=== PATIENT | male | born 1945 | race Caucasian/White ===

== ENCOUNTER 2020-03-25 14:39 | Inpatient (IN) ==
[2020-03-25 14:47] VITALS: BMI 24.4
--- NOTE | 2020-03-25 15:09 | DR.GENAD ---
HPI Time Seen Time Seen by Provider: 03/25/20 14:47 PCP Primary Care Physician: ARPAN RIVAS Complaint/Symptoms Chief Complaint Doctors Comments: Saw PCP last week and placed on zPAK Chief Complaint:: PT C/O 1 WEEK HISTORY OF NONPRODUCTIVE CONSTANT COUGH, FEVER UP TO 104, SHORTNESS OF BREATH AND NAUSEA/VOMITING. COVID-19 Coronavirus risk:travel/contact w/high risk person: Yes Has patient experienced Coronavirus symptoms: Yes Coronavirus symptoms experienced: Fever, Coughing and Shortness of Breath Nurses notes reviewed Nurses Notes Review: Yes Source History Provided: Patient Mode of Arrival Mode of Arrival: Wheelchair Timing Onset of Chief Complaint: 03/25/20 Came on: Gradually Duration Duration: Constant How lon Duration: Days Severity Severity: Mild Modifying Factors Worsens:: exertion Associated Signs and Symptoms Associated Signs and Symptoms: vomiting cough ,fever PMH PMH Past Medical History: Yes Past Medical History: Coronary Artery Disease, Hypertension, CA and Sleep Apnea Past Surgical History: Yes Surgical History: Angioplasty/Stents Family History History of Family Medical Conditions: Yes Family Medical History: Diabetes Mellitus, CA, Coronary Artery Disease and Hypertension Social History Does patient currently use any type of tobacco product: No Have you used tobacco products in the last 12 months: No Type of Tobacco Use: None Does any household member use tobacco: No Alcohol Use: None Do you use any recreational Drugs:: No Lives With: Family Lives Where: Home Travel Risk Coronavirus risk:travel/contact w/high risk person: Yes Has patient experienced Coronavirus symptoms: Yes Coronavirus symptoms experienced: Fever, Coughing and Shortness of Breath Infectious screening In the last 2 months have you had wt loss of >10#?: NO Have you had fever, night sweats or hemotysis?: No Have you traveled outside the country in the last 6 months?: No Isolation: Standard ROS Review of Systems Constitutional: Fever and Weakness Eyes: No Symptoms Reported ENTM: No Symptoms Reported Respiratoy: Productive Cough Cardiovascular: No Symptoms Reported Gastrointestinal/Abdominal: Nausea and Vomiting Genitourinary: No Symptoms Reported Neurological: No Symptoms Reported Musculoskeletal: Muscle Pain Integumentary: No Symptoms Reported Hematologic/Lymphatic: No Symptoms Reported Endocrine: No Symptoms Reported Psychiatric: No Symptoms Reported All Other Systems: Reviewed and Negative PE Vital Signs Vitals: Temperature 98.0 F Pulse Rate 68 Respiratory Rate 24 Blood Pressure 132/60 O2 Sat by Pulse Oximetry 93 General Limitations: No Limitations General Appearance: Alert and In No Apparent Distress Head Head Exam: Normal Inspection, Atraumatic and Normocephalic Eyes Eye exam: Normal Appearance and EOMI ENT ENT Exam: Normal Exam and Normal Oropharynx External Ear Exam: Normal External Inspection Nose Exam: Normal Nose Exam Mouth Exam: Normal Inspection Throat Exam: Normal Inspection Neck Neck Exam: Normal Inspection, Full ROM and Trachea Midline Chest Chest Inspection: Normal Inspection Respiratory Respiratory Exam: Normal Lung Sounds Bilat; negative Accessory Muscle Use Respiratory Exam: Right: Wheezing Cardiovascular Cardiovascular Exam: Regular Rate Abdominal Exam Abdominal Exam: Normal Inspection, Normal Bowel Sounds and Soft; negative Distention, Tenderness and Guarding Extremities Extremities Exam: Normal Inspection and Full ROM Back Back Exam: Normal Inspection and Full ROM Neurologic Neurological Exam: Alert, Oriented X3 and CN II-XII Intact Psychiatric Psychiatric Exam: Normal Affect Skin Skin Exam: Normal Color COURSE Consultation Called: 16:46 Call Returned: 16:46 Consultation Comments: 1645: case discussed with DR. THOMPSON admit for COVID19 treatment ROR Labs Reviewed Result Diagrams: 03/28/20 04:40 03/28/20 04:40 Laboratory: WBC 5.9 X10^3/uL (3.6-10.0) 03/25/20 13:24 RBC 4.69 X10^6/uL (4.7-6.0) L 03/25/20 13:24 Hgb 13.7 g/dL (13.5-18.0) 03/25/20 13:24 Hct 40.1 % (42.0-54.0) L 03/25/20 13:24 MCV 85.6 fL (80.0-100.0) 03/25/20 13:24 MCH 29.3 pg (27.0-34.0) 03/25/20 13:24 MCHC 34.3 g/dL (33.0-35.0) 03/25/20 13:24 RDW 13.6 % (11.6-16.5) 03/25/20 13:24 Plt Count 128 X10^3/uL (150.0-450.0) L 03/25/20 13:24 MPV 8.4 fL (7.4-11.0) 03/25/20 13:24 Neut % (Auto) 83.5 % (42.0-75.0) H 03/25/20 13:24 Lymph % (Auto) 4.4 % (21.0-51.0) L 03/25/20 13:24 Howell % (Auto) 11.8 % (0.0-13.0) 03/25/20 13:24 Eos % (Auto) 0.1 % (0.9-2.9) L 03/25/20 13:24 Baso % (Auto) 0.2 % (0.2-1.0) 03/25/20 13:24 Neut # (Auto) 4.9 x10^3/uL (2.2-4.8) H 03/25/20 13:24 Lymph # (Auto) 0.3 X10^3/uL (1.3-2.9) L 03/25/20 13:24 Howell # (Auto) 0.7 x10^3/uL (0.3-0.8) 03/25/20 13:24 Eos # (Auto) 0.0 x10^3/uL (0.0-0.2) 03/25/20 13:24 Baso # (Auto) 0.0 X10^3/uL (0.0-0.1) 03/25/20 13:24 Absolute Nucleated RBC 0.2 /100WBC 03/25/20 13:24 Sodium 141 mmol/L (136-145) 03/25/20 13:24 Corrected Sodium 141 mmol/L (136-145) 03/25/20 13:24 Potassium 3.7 mmol/L (3.5-5.1) 03/25/20 13:24 Chloride 105 mmol/L (98-107) 03/25/20 13:24 Carbon Dioxide 27.0 mmol/L (21-32) 03/25/20 13:24 BUN 18 mg/dL (7-18) 03/25/20 13:24 Creatinine 1.25 mg/dL (0.70-1.30) 03/25/20 13:24 Est GFR (MDRD) Af Amer > 60 (>60) 03/25/20 13:24 Est GFR (MDRD) Non-Af 60 (>60) 03/25/20 13:24 Glucose 119 mg/dL (65-99) H 03/25/20 13:24 Calcium 8.8 mg/dL (8.5-10.1) 03/25/20 13:24 Corrected Calcium 9.8 mg/dL (8.5-10.1) 03/25/20 13:24 Ferritin 626 ng/mL (26-388) H 03/25/20 13:24 Total Bilirubin 0.50 mg/dL (0.2-1.0) 03/25/20 13:24 AST 20 Units/L (15-37) 03/25/20 13:24 ALT 41 Units/L (12-78) 03/25/20 13:24 Alkaline Phosphatase 88 Units/L (46-116) 03/25/20 13:24 Troponin I < 0.02 ng/mL (0-1.5) 03/25/20 13:24 C-Reactive Protein 75.50 mg/L (0-3.0) H 03/25/20 13:24 Total Protein 6.9 g/dL (6.4-8.2) 03/25/20 13:24 Albumin 2.8 g/dL (3.4-5.0) L 03/25/20 13:24 Globulin 4.1 g/dL (2.5-4.5) 03/25/20 13:24 Albumin/Globulin Ratio 0.7 Ratio (1.1-2.1) L 03/25/20 13:24 SARS-CoV-2 (PCR) Positive (NEGATIVE) A 03/25/20 17:09 XRAY XRAY Interpreted by: Radiologist X-ray Results: chest: bronchpneumonia Opioid Opioid Risk Tool Age (Lance box if 16-45): No History of Preadolescent Sexual Abuse: No Total: 0 Total Score Risk Category: Low Risk Copyright: Jayson WESTON predicting aberrant behaviors Diagnosis Discharge Problem: Pneumonia due to COVID-19 virus Instructions Instructions: Viral Respiratory Infection, [id number] Home Oxygen Use, Adult Contact Precautions, [id number] Hypertension, [id number] Form - Blood Pressure Record Sheet Forms: Excuse From Work or School Convalescent Plasma Precautions for COVID19 Patient Portal Social Distancing
[2020-03-25] MEDS ORDERED: ZOFRAN INJ 4 MG VIAL IVP ONE (15:19)
[2020-03-25] MEDS ORDERED: SOLU-Medrol 125 MG VIAL IVP ONE (15:20)
[2020-03-25] MEDS ORDERED: XOPENEX 1.25 MG/3 ML NEBULE NEB ONE ×2 (15:21→15:24)
[2020-03-25] MEDS ORDERED: ZOFRAN INJ 4 MG VIAL ONE (15:24)
[2020-03-25] MEDS ORDERED: NS 1000 ML 1,000 ML ONE (15:24)
[2020-03-25 15:33] LABS: BASOPHILS % (AUTO) 0.2 % (0.2-1.0); EOSINOPHILS % (AUTO) 0.1 % (0.9-2.9); HEMATOCRIT 40.1 % (42.0-54.0); HEMOGLOBIN 13.7 g/dL (13.5-18.0); LYMPHOCYTES # (AUTO) 0.3 X10^3/uL (1.3-2.9); LYMPHOCYTES % (AUTO) 4.4 % (21.0-51.0); MEAN CORPUSCULAR HEMOGLOBIN 29.3 pg (27.0-34.0); MEAN CORPUSCULAR HGB CONC 34.3 g/dL (33.0-35.0); MEAN CORPUSCULAR VOLUME 85.6 fL (80.0-100.0); MEAN PLATELET VOLUME 8.4 fL (7.4-11.0); MONOCYTES # (AUTO) 0.7 x10^3/uL (0.3-0.8); MONOCYTES % (AUTO) 11.8 % (0.0-13.0); NEUTROPHILS # (AUTO) 4.9 x10^3/uL (2.2-4.8); NEUTROPHILS % (AUTO) 83.5 % (42.0-75.0); PLATELET COUNT 128 X10^3/uL (150.0-450.0); RED BLOOD COUNT 4.69 X10^6/uL (4.7-6.0); RED CELL DISTRIBUTION WIDTH 13.6 % (11.6-16.5); WHITE BLOOD COUNT 5.9 X10^3/uL (3.6-10.0)
--- NOTE | 2020-03-25 15:35 | RAD ---
HISTORYFEVER, COUGHSTUDYCHEST, 1 VIEWCOMPARISONNoneFINDINGSMultifocal areas of uptake are present. The findings could be bronchopneumonia. Findings are suspicious for COVID-19.No pleural effusion or pneumothorax.Heart size is normal. Vascular calcifications are present compatible with atherosclerosis.Degenerative changes in the acromioclavicular joints.IMPRESSION1. Bronchopneumonia, suspicious for COVID-19Electronically signed by: Dontrell Chaves (Mar 25, 2020 15:34:36)
[2020-03-25] MEDS ORDERED: MOTRIN TAB 800 MG PO ONE ×2 (15:48→15:50)
[2020-03-25 15:51] LABS: ALANINE AMINOTRANSFERASE 41 Units/L (12-78); ALBUMIN 2.8 g/dL (3.4-5.0); ALKALINE PHOSPHATASE 88 Units/L (46-116); ASPARTATE AMINO TRANSFERASE 20 Units/L (15-37); BLOOD UREA NITROGEN 18 mg/dL (7-18); CALCIUM 8.8 mg/dL (8.5-10.1); CHLORIDE 105 mmol/L (98-107); COR CA(FOR HYPOALB) 9.8 mg/dL (8.5-10.1); COR NA(FOR HYPERGLY) 141 mmol/L (136-145); CREATININE 1.25 mg/dL (0.70-1.30); SODIUM 141 mmol/L (136-145); TOTAL PROTEIN 6.9 g/dL (6.4-8.2); TROPONIN I < 0.02 ng/mL (0-1.5); eGFR NON BLACK RACES 60 (>60)
[2020-03-25] MEDS: NS 1000 ML 1,000 ML IV SCH (15:53)
[2020-03-25] MEDS ORDERED: SOLU-Medrol 125 MG VIAL ONE (15:55)
[2020-03-25] MEDS ORDERED: REMDESIVIR (INVESTIGATIONAL DRUG GS-5734) 200 MG in NS 250 ML IV 250 ML IV SCH (18:00)
[2020-03-25] MEDS ORDERED: NS 1000 ML 1,000 ML IV SCH (18:00)
[2020-03-25] MEDS: VITAMIN D (1.25MG) PO SCH (20:40)
[2020-03-25] MEDS: ZINC SULFATE PO SCH (20:40)
[2020-03-25] MEDS: LOVENOX INJ 30 MG SYR SC SCH (20:45)
[2020-03-25] MEDS: ASCORBIC ACID INJ MULTI-DOSE VIAL 1,500 MG in NS 100 ML IV 100 ML IV SCH (22:35)
[2020-03-26] MEDS: XOPENEX 1.25 MG/3 ML NEBULE NEB SCH ×4 (00:48→17:20)
[2020-03-26] MEDS: ASCORBIC ACID INJ MULTI-DOSE VIAL 1,500 MG in NS 100 ML IV 100 ML IV SCH ×4 (03:25→20:37)
[2020-03-26 07:36] LABS: CREATINE KINASE 103 Units/L (39-308); CREATINE KINASE MB < 1.0 ng/mL (0-4.0); TROPONIN I < 0.02 ng/mL (0-1.5)
[2020-03-26] MEDS ORDERED: VITAMIN A PO SCH (09:00)
[2020-03-26] MEDS: DECADRON TAB PO SCH (09:01)
[2020-03-26] MEDS: LOVENOX INJ 30 MG SYR SC SCH ×2 (09:02→20:37)
[2020-03-26] MEDS: VITAMIN D (1.25MG) PO SCH (09:03)
[2020-03-26] MEDS: PLAQUENIL PO SCH ×2 (09:03→20:37)
[2020-03-26] MEDS: ZINC SULFATE PO SCH ×2 (09:04→20:37)
[2020-03-26] MEDS: TRICOR TAB 160 MG PO SCH (09:04)
[2020-03-26] MEDS ORDERED: COREG TAB 12.5 MG PO SCH (11:00)
[2020-03-26] MEDS ORDERED: COREG TAB 25 MG ONE (11:44)
[2020-03-26] MEDS: COREG TAB 12.5 MG PO SCH ×2 (11:45→22:14)
[2020-03-26] MEDS: REMDESIVIR (INVESTIGATIONAL DRUG GS-5734) 100 MG in NS 250 ML IV 250 ML IV SCH (12:16)
[2020-03-26] MEDS: TUSSIONEX PENNKINETIC SUSP PO PRN (14:50)
[2020-03-26] MEDS: NS 1000 ML 1,000 ML IV SCH (16:13)
[2020-03-27] MEDS: XOPENEX 1.25 MG/3 ML NEBULE NEB SCH ×4 (00:50→16:35)
[2020-03-27] MEDS: ASCORBIC ACID INJ MULTI-DOSE VIAL 1,500 MG in NS 100 ML IV 100 ML IV SCH ×4 (02:09→20:23)
[2020-03-27] MEDS ORDERED: ZOFRAN INJ 4 MG VIAL IVP PRN (02:10)
[2020-03-27 05:15] LABS: BASOPHILS % (AUTO) 0.3 % (0.2-1.0); HEMATOCRIT 35.2 % (42.0-54.0); LYMPHOCYTES # (AUTO) 0.4 X10^3/uL (1.3-2.9); LYMPHOCYTES % (AUTO) 2.5 % (21.0-51.0); MEAN CORPUSCULAR HEMOGLOBIN 29.2 pg (27.0-34.0); MEAN CORPUSCULAR HGB CONC 34.2 g/dL (33.0-35.0); MEAN CORPUSCULAR VOLUME 85.5 fL (80.0-100.0); MEAN PLATELET VOLUME 9.2 fL (7.4-11.0); MONOCYTES # (AUTO) 1.5 x10^3/uL (0.3-0.8); NEUTROPHILS # (AUTO) 14.7 x10^3/uL (2.2-4.8); NEUTROPHILS % (AUTO) 88.2 % (42.0-75.0); PLATELET COUNT 160 X10^3/uL (150.0-450.0); RED BLOOD COUNT 4.11 X10^6/uL (4.7-6.0); RED CELL DISTRIBUTION WIDTH 13.8 % (11.6-16.5); WHITE BLOOD COUNT 16.6 X10^3/uL (3.6-10.0)
[2020-03-27] MEDS: NS 1000 ML 1,000 ML IV SCH ×2 (05:32→15:34)
[2020-03-27 05:41] LABS: ALANINE AMINOTRANSFERASE 31 Units/L (12-78); ALBUMIN 2.3 g/dL (3.4-5.0); ALKALINE PHOSPHATASE 108 Units/L (46-116); ASPARTATE AMINO TRANSFERASE 20 Units/L (15-37); BLOOD UREA NITROGEN 24 mg/dL (7-18); CALCIUM 8.3 mg/dL (8.5-10.1); CARBON DIOXIDE 28.7 mmol/L (21-32); CHLORIDE 109 mmol/L (98-107); COR CA(FOR HYPOALB) 9.7 mg/dL (8.5-10.1); COR NA(FOR HYPERGLY) 144 mmol/L (136-145); SODIUM 143 mmol/L (136-145); TOTAL PROTEIN 6.1 g/dL (6.4-8.2); eGFR NON BLACK RACES > 60 (>60)
[2020-03-27] MEDS: COREG TAB 12.5 MG PO SCH ×2 (09:15→21:27)
[2020-03-27] MEDS: DECADRON TAB PO SCH (09:15)
[2020-03-27] MEDS: TRICOR TAB 160 MG PO SCH (09:16)
[2020-03-27] MEDS: PLAQUENIL PO SCH ×2 (09:16→20:26)
[2020-03-27] MEDS: VITAMIN A PO SCH (09:17)
[2020-03-27] MEDS: ZINC SULFATE PO SCH ×2 (09:17→20:26)
[2020-03-27] MEDS: VITAMIN D3 125 mcg (5,000 UNITS) PO SCH (09:17)
[2020-03-27] MEDS: LOVENOX INJ 30 MG SYR SC SCH ×2 (09:20→20:24)
[2020-03-27] MEDS ORDERED: TESSALON PERLES PO PRN (10:07)
[2020-03-27] MEDS: REMDESIVIR (INVESTIGATIONAL DRUG GS-5734) 100 MG in NS 250 ML IV 250 ML IV SCH (10:18)
[2020-03-27] MEDS: MILK OF MAGNESIA PO SCH ×2 (11:55→20:23)
[2020-03-27] MEDS ORDERED: COLACE CAP 100 MG PO ONE (19:42)
[2020-03-27] MEDS ORDERED: COLACE CAP 100 MG PO SCH (21:00)
[2020-03-28] MEDS: XOPENEX 1.25 MG/3 ML NEBULE NEB SCH ×4 (02:19→11:50)
[2020-03-28] MEDS: ASCORBIC ACID INJ MULTI-DOSE VIAL 1,500 MG in NS 100 ML IV 100 ML IV SCH ×2 (02:42→09:10)
[2020-03-28] MEDS: NS 1000 ML 1,000 ML IV SCH (02:42)
[2020-03-28 05:05] LABS: BASOPHILS % (AUTO) 0.2 % (0.2-1.0); HEMATOCRIT 35.6 % (42.0-54.0); HEMOGLOBIN 12.1 g/dL (13.5-18.0); LYMPHOCYTES # (AUTO) 0.4 X10^3/uL (1.3-2.9); LYMPHOCYTES % (AUTO) 3.2 % (21.0-51.0); MEAN CORPUSCULAR HEMOGLOBIN 29.4 pg (27.0-34.0); MEAN CORPUSCULAR VOLUME 86.4 fL (80.0-100.0); MEAN PLATELET VOLUME 9.5 fL (7.4-11.0); MONOCYTES % (AUTO) 8.1 % (0.0-13.0); NEUTROPHILS # (AUTO) 10.3 x10^3/uL (2.2-4.8); NEUTROPHILS % (AUTO) 88.5 % (42.0-75.0); PLATELET COUNT 155 X10^3/uL (150.0-450.0); RED BLOOD COUNT 4.11 X10^6/uL (4.7-6.0); RED CELL DISTRIBUTION WIDTH 13.8 % (11.6-16.5); WHITE BLOOD COUNT 11.7 X10^3/uL (3.6-10.0)
[2020-03-28 05:12] LABS: ALANINE AMINOTRANSFERASE 65 Units/L (12-78); ALBUMIN 2.2 g/dL (3.4-5.0); ALKALINE PHOSPHATASE 97 Units/L (46-116); ASPARTATE AMINO TRANSFERASE 34 Units/L (15-37); BLOOD UREA NITROGEN 23 mg/dL (7-18); CALCIUM 8.5 mg/dL (8.5-10.1); CARBON DIOXIDE 26.7 mmol/L (21-32); CHLORIDE 108 mmol/L (98-107); COR CA(FOR HYPOALB) 9.9 mg/dL (8.5-10.1); COR NA(FOR HYPERGLY) 144 mmol/L (136-145); CREATININE 0.91 mg/dL (0.70-1.30); SODIUM 143 mmol/L (136-145); eGFR NON BLACK RACES > 60 (>60)
[2020-03-28] MEDS: COREG TAB 12.5 MG PO SCH (09:38)
[2020-03-28] MEDS: DECADRON TAB PO SCH (09:39)
[2020-03-28] MEDS: LOVENOX INJ 30 MG SYR SC SCH (09:39)
[2020-03-28] MEDS: PLAQUENIL PO SCH (09:40)
[2020-03-28] MEDS: REMDESIVIR (INVESTIGATIONAL DRUG GS-5734) 100 MG in NS 250 ML IV 250 ML IV SCH (09:40)
[2020-03-28] MEDS: MILK OF MAGNESIA PO SCH (09:40)
[2020-03-28] MEDS: TRICOR TAB 160 MG PO SCH (09:40)
[2020-03-28] MEDS: VITAMIN D3 125 mcg (5,000 UNITS) PO SCH (09:41)
[2020-03-28] MEDS: VITAMIN A PO SCH (09:41)
[2020-03-28] MEDS: ZINC SULFATE PO SCH (09:41)
[2020-03-28] MEDS: TUSSIONEX PENNKINETIC SUSP PO PRN (10:27)
[2020-03-28 13:02] VITALS: BP 162/73
== END 2020-03-28 14:20 | disposition home or self-care (01) | DRG 177 ==
LOC: ER 14:40 → ICU 17:56
PROVIDERS: ADMIT Obstetrics & Gynecology Obstetrics; ATTEND Obstetrics & Gynecology Obstetrics
DX: R11.2 Nausea with vomiting, unspecified; J12.89 Other viral pneumonia; R06.02 Shortness of breath; R00.8 Other abnormalities of heart beat; I25.10 Atherosclerotic heart disease of native coronary artery without angina pectoris; I10 Essential (primary) hypertension; U07.1 COVID-19